=== PATIENT | male | born 1990 | race Caucasian/White ===

== ENCOUNTER 2023-03-23 16:44 | Emergency (ER) | payer OTHER ==
[~2023-03-23] VITALS: Ht 160 cm; Wt 54.5 kg
[2023-03-23 17:08] VITALS: TEMP 98
[2023-03-23 17:16] VITALS: BP 115/74; PULSE 100; RESP 18
[2023-03-23 17:37] LABS: BASOPHILS % (AUTO) 0.4 % (0.0-2.0); EOSINOPHILS % (AUTO) 0.3 % (1.0-6.0); HEMATOCRIT 47.4 % (41-53); HEMOGLOBIN 15.9 g/dL (13.5-17.5); LYMPHOCYTES % (AUTO) 27.1 % (22.0-44.0); MEAN CORPUSCULAR HEMOGLOBIN 29.9 pg (26.0-34.0); MEAN CORPUSCULAR HGB CONC 33.5 G/dL (31.0-37.0); MEAN CORPUSCULAR VOLUME 90 fL (80-100); MONOCYTES # (AUTO) 0.7 K/uL (0.1-1.0); MONOCYTES % (AUTO) 9.9 % (2.0-9.0); NEUTROPHILS # (AUTO) 4.6 K/uL (1.8-7.7); NEUTROPHILS % (AUTO) 62.3 % (40.0-70.0); PLATELET COUNT (AUTO) 264 K/uL (150-450)
[2023-03-23 17:46] LABS: ANION GAP 8 mmol/L (8-16); CALCIUM, TOTAL 9.8 mg/dL (8.8-10.5); CARBON DIOXIDE 29 mmol/L (22-29); CHLORIDE 98 mmol/L (98-107); CREATININE 0.78 mg/dL (0.60-1.30); GLOMERULAR FILTR. RATE CALC > 60 mL/min (>60); GLUCOSE,RANDOM 78 mg/dL (70-110); POTASSIUM 3.9 mmol/L (3.5-5.1); SODIUM SERUM 135 mmol/L (136-145)
[2023-03-23 17:51] LABS: ALANINE AMINOTRANSFERASE 21 U/L (12-78); ALBUMIN 4.3 g/dL (3.4-5.0); ALKALINE PHOSPHATASE 82 U/L (46-116); ASPARTATE AMINOTRANSFERASE 24 U/L (15-37); BILIRUBIN,TOTAL 1.5 mg/dL (0.1-1.0); TOTAL PROTEIN, SERUM 8.2 g/dL (6.4-8.2)
[2023-03-23 18:14] LABS: COVID AG,FIA SOURCE NASOPHARYNGEAL
== END 2023-03-23 20:22 | disposition home or self-care (01) ==
LOC: EMS 16:45
DX: F32.9 Major depressive disorder, single episode, unspecified (principal); F41.9 Anxiety disorder, unspecified; F17.210 Nicotine dependence, cigarettes, uncomplicated; Z20.822 Contact with and (suspected) exposure to COVID-19
CPT/HCPCS: 99284; 87426; 80053; 85025; 36415; G0480

== ENCOUNTER 2023-03-23 22:40 | Emergency (ER) | payer OTHER ==
[~2023-03-23] VITALS: Ht 165.1 cm; Wt 57.7 kg
[2023-03-23 22:42] VITALS: BP 108/76; PULSE 96; RESP 16; TEMP 98.3
== END 2023-03-24 00:09 | disposition home or self-care (01) ==
LOC: EMS 22:40
DX: R44.0 Auditory hallucinations (principal); F32.A Depression, unspecified; F41.9 Anxiety disorder, unspecified; F17.210 Nicotine dependence, cigarettes, uncomplicated
CPT/HCPCS: 99284; Z7502

== ENCOUNTER 2025-04-06 00:13 | Emergency (ER) | payer BC, OTHER ==
[~2025-04-06] VITALS: Ht 167.6 cm; Wt 61.4 kg
[2025-04-06 04:26] VITALS: TEMP 98.005280
[2025-04-06 06:25] LABS: COVID AG,FIA SOURCE NASAL SWAB
[2025-04-06 06:55] VITALS: BP 116/86; PULSE 81; RESP 18; O2SAT 100
[2025-04-06 06:57] LABS: SARS-COV2 (COVID) ANTIGEN,FIA Negative (Negative)
[2025-04-06 07:28] LABS: PH,URINE DRUG SCREEN 7.5 (5.0-8.0)
[2025-04-06 07:34] LABS: ALCOHOL, URINE DRUG SCREEN NEGATIVE (NEGATIVE); AMPHET/METH SCREEN,URINE POSITIVE (NEGATIVE); BARBITURATE SCREEN, URINE NEGATIVE (NEGATIVE); CANNABINOID SCREEN,URINE NEGATIVE (NEGATIVE); COCAINE SCREEN,URINE NEGATIVE (NEGATIVE); METHADONE SCREEN, URINE NEGATIVE (NEGATIVE)
== END 2025-04-06 08:43 | disposition home or self-care (01) ==
LOC: EMS 00:13
DX: F41.9 Anxiety disorder, unspecified (principal); R44.0 Auditory hallucinations; F17.210 Nicotine dependence, cigarettes, uncomplicated; F32.A Depression, unspecified; Z90.89 Acquired absence of other organs; Z20.822 Contact with and (suspected) exposure to COVID-19
CPT/HCPCS: 80307; 99283